=== PATIENT | male | born 1955 | race Caucasian/White ===

== ENCOUNTER → 2022-08-14 | Outpatient (CLI) | payer MEDICARE, OTHER, SELFPAY ==
--- NOTE | 2022-08-14 18:15 | MRI_ITS ---
EXAM: MR HEAD WITHOUT AND WITH INTRAVENOUS CONTRAST CLINICAL INDICATION: ATAXIA TECHNIQUE: Multiplanar and multisequence MR images of the brain were obtained without and with intravenous contrast. This report was created using [employer] report generation technology. CONTRAST: IV 23ml clariscan COMPARISON: None. 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 No intra- or extra-axial hemorrhage. No intracranial mass or mass effect. Posterior fossa structures are unremarkable. Ventricles are appropriate for age. No hydrocephalus. Basal cisterns are patent. SELLA: Unremarkable. Normal sella turcica, pituitary gland, infundibular stalk, optic chiasm and hypothalamus. AUDITORY SYSTEM: Unremarkable. The internal auditory canals are patent. BONES/JOINTS: Unremarkable. No discrete lytic or blastic abnormalities. SINUSES: Mucosal thickening involving the right maxillary sinus. No air-fluid levels involving the paranasal sinuses. MASTOID AIR CELLS: Unremarkable as visualized. Clear. ORBITS: Unremarkable as visualized. Both globes, extraocular muscles, optic nerves and retrobulbar fat appear unremarkable. VASCULATURE: Unremarkable as visualized. Normal flow voids in the major intracranial circulation. MRI/Brain W/WO Contrast IMPRESSION: No acute intracranial pathology. No findings to explain clinical presentation. Electronically Signed: Maxime Adan MD at 21:41 EDT ,
[2022-08-14 18:35] LABS: CREATININE FINGERSTICK 1.3 mg/dL (0.70-1.30)
== END | disposition home or self-care (01) ==
PROVIDERS: Visit Provider Otolaryngology Otolaryngology/Facial Plastic Surgery
DX: R27.0 Ataxia, unspecified (principal)
CPT/HCPCS: 70553; A9575